=== PATIENT | female | born 1950 | race Caucasian/White ===

== ENCOUNTER 2018-04-16 12:11 | Inpatient (IN) | payer OTHER ==
[~2018-04-16] VITALS: Ht 165.1 cm; Wt 109.1 kg
[2018-04-16] MEDS ORDERED: SODIUM CHLORIDE FLUSH 10ML SYR IVF ONE (13:00)
[2018-04-16 13:34] LABS: ALBUMIN 2.8 g/dL (3.4-5.0); ANION GAP 5 mmol/L (5-15); BASOPHILS # (AUTO) 0.04 x10^3/uL (0-0.1); BASOPHILS % (AUTO) 0 % (0-1); CHLORIDE 104 mmol/L (98-107); EOSINOPHILS % (AUTO) 1 % (1-7); LYMPHOCYTES # (AUTO) 1.85 x10^3/uL (1-3.4); LYMPHOCYTES % (AUTO) 20 % (22-44); MD NO; MEAN CORPUSCULAR HEMOGLOBIN 32.3 pg (27.0-34.8); MEAN CORPUSCULAR HGB CONC 32.2 g/dL (32.4-35.8); MEAN CORPUSCULAR VOLUME 100.3 fL (80-100); MEAN PLATELET VOLUME 9.4 fL (7.4-10.4); MONOCYTES # (AUTO) 0.85 x10^3/uL (0.2-0.8); MONOCYTES % (AUTO) 9 % (2-9); NEUTROPHILS # (AUTO) 6.64 x10^3/uL (1.8-6.8); NEUTROPHILS % (AUTO) 70 % (42-75); PLATELET COUNT 161 x10^3/uL (130-400); RED BLOOD COUNT 4.67 x10^6/uL (3.82-5.3); RED CELL DISTRIBUTION WIDTH 15.8 % (9.6-15.2)
[2018-04-16 13:36] LABS: INTERNATIONAL NORMALIZED RATIO 1.16 (0.93-1.1); PROTHROMBIN TIME 11.9 Seconds (9.6-11.5)
[2018-04-16 13:40] LABS: ALANINE AMINOTRANSFERASE 12 U/L (12-78); ALKALINE PHOSPHATASE 85 U/L (45-117); BILIRUBIN,TOTAL 1.3 mg/dL (0.2-1.0); CREATININE 0.93 mg/dL (0.55-1.02); TOTAL PROTEIN 6.4 g/dL (6.4-8.2); TROPONIN I < 0.015 ng/mL (0.000-0.045)
[2018-04-16] MEDS ORDERED: FUROSEMIDE 20 MG/2 ML ONE ×2 (14:10→18:00)
[2018-04-16] MEDS ORDERED: SACU1TAB4 PO (14:25)
[2018-04-16] MEDS ORDERED: SIMV40TA3 PO (14:25)
[2018-04-16] MEDS ORDERED: FURO20TA3 PO (14:25)
[2018-04-16] MEDS ORDERED: SPIR25TA3 PO (14:25)
[2018-04-16] MEDS ORDERED: CARV-39 PO (14:25)
[2018-04-16] MEDS ORDERED: PLEASE ENTER ALLERGIES MC SCH (14:30)
[2018-04-16] MEDS ORDERED: FUROSEMIDE 20 MG/2 ML IV ONE (14:30)
[2018-04-16 15:37] LABS: TROPONIN I < 0.015 ng/mL (0.000-0.045)
[2018-04-16] MEDS ORDERED: ALBUTEROL/IPRATROPIUM 2.5MG/0.5MG, 3 ML ONE (16:17)
[2018-04-16] MEDS: ALBUTEROL/IPRATROPIUM 2.5MG/0.5MG, 3 ML NPPB SCH ×2 (16:22→20:00)
[2018-04-16] MEDS ORDERED: FUROSEMIDE 20 MG/2 ML IV SCH (17:00)
[2018-04-16] MEDS ORDERED: POTASSIUM CHLORIDE 20 MEQ TAB.ER.PRT ONE (18:00)
[2018-04-16] MEDS ORDERED: POTASSIUM CHLORIDE 10% 40 MEQ/30 ML UDC PO ONE ×3 (18:30→21:00)
[2018-04-16 21:42] LABS: TROPONIN I < 0.015 ng/mL (0.000-0.045)
[2018-04-16 22:25] VITALS: BP 105/68
[2018-04-16] MEDS: SIMVASTATIN 40 MG TABLET PO SCH (22:57)
[2018-04-16] MEDS: CARVEDILOL 25 MG TABLET PO SCH (22:57)
[2018-04-16] MEDS: SPIRONOLACTONE 25 MG TABLET PO SCH (22:57)
[2018-04-17 02:23] VITALS: BP 92/56
[2018-04-17] MEDS: ALBUTEROL/IPRATROPIUM 2.5MG/0.5MG, 3 ML NPPB SCH (07:00)
[2018-04-17 07:44] VITALS: BP 118/67
[2018-04-17] MEDS ORDERED: POTASSIUM CHLORIDE 20 MEQ TAB.ER.PRT PO SCH ×2 (08:00→09:00)
[2018-04-17] MEDS ORDERED: POTASSIUM CHLORIDE 20 MEQ PACKET PO SCH ×2 (08:37→08:38)
[2018-04-17] MEDS ORDERED: POTASSIUM CHLORIDE 20 MEQ PACKET ONE (08:37)
[2018-04-17 08:45] LABS: BASOPHILS # (AUTO) 0.06 x10^3/uL (0-0.1); BASOPHILS % (AUTO) 1 % (0-1); EOSINOPHILS # (AUTO) 0.11 x10^3/uL (0-0.4); EOSINOPHILS % (AUTO) 1 % (1-7); LYMPHOCYTES % (AUTO) 24 % (22-44); MD NO; MEAN CORPUSCULAR HEMOGLOBIN 31.7 pg (27.0-34.8); MEAN CORPUSCULAR HGB CONC 31.8 g/dL (32.4-35.8); MEAN CORPUSCULAR VOLUME 99.6 fL (80-100); MEAN PLATELET VOLUME 9.2 fL (7.4-10.4); MONOCYTES # (AUTO) 0.65 x10^3/uL (0.2-0.8); MONOCYTES % (AUTO) 9 % (2-9); NEUTROPHILS # (AUTO) 5.02 x10^3/uL (1.8-6.8); NEUTROPHILS % (AUTO) 66 % (42-75); PLATELET COUNT 154 x10^3/uL (130-400); RED BLOOD COUNT 4.48 x10^6/uL (3.82-5.3); RED CELL DISTRIBUTION WIDTH 15.4 % (9.6-15.2)
[2018-04-17] MEDS: FUROSEMIDE 40 MG/4 ML IV SCH ×2 (08:47→16:50)
[2018-04-17] MEDS: SPIRONOLACTONE 25 MG TABLET PO SCH ×2 (08:47→22:06)
[2018-04-17] MEDS: CARVEDILOL 25 MG TABLET PO SCH ×2 (08:48→22:06)
[2018-04-17 08:53] LABS: CHLORIDE 105 mmol/L (98-107)
[2018-04-17 08:59] LABS: ANION GAP 6 mmol/L (5-15); CREATININE 0.88 mg/dL (0.55-1.02)
[2018-04-17] MEDS: POTASSIUM CHLORIDE 20 MEQ PACKET PO SCH ×2 (11:37→16:50)
[2018-04-17] MEDS ORDERED: ALBUTEROL/IPRATROPIUM 2.5MG/0.5MG, 3 ML NPPB PRN (12:00)
[2018-04-17 12:54] VITALS: BP 115/83
[2018-04-17] MEDS ORDERED: FUROSEMIDE 20 MG/2 ML IV SCH (17:00)
[2018-04-17 19:32] VITALS: BP 105/70
[2018-04-17] MEDS: SIMVASTATIN 40 MG TABLET PO SCH (22:06)
[2018-04-18 02:00] VITALS: BP 97/61
[2018-04-18 05:31] LABS: BASOPHILS # (AUTO) 0.03 x10^3/uL (0-0.1); BASOPHILS % (AUTO) 0 % (0-1); EOSINOPHILS # (AUTO) 0.09 x10^3/uL (0-0.4); EOSINOPHILS % (AUTO) 1 % (1-7); LYMPHOCYTES % (AUTO) 22 % (22-44); MD NO; MEAN CORPUSCULAR HEMOGLOBIN 32.3 pg (27.0-34.8); MEAN CORPUSCULAR HGB CONC 31.7 g/dL (32.4-35.8); MEAN CORPUSCULAR VOLUME 101.7 fL (80-100); MEAN PLATELET VOLUME 9.9 fL (7.4-10.4); MONOCYTES # (AUTO) 0.89 x10^3/uL (0.2-0.8); MONOCYTES % (AUTO) 11 % (2-9); NEUTROPHILS # (AUTO) 5.27 x10^3/uL (1.8-6.8); NEUTROPHILS % (AUTO) 65 % (42-75); PLATELET COUNT 133 x10^3/uL (130-400); RED BLOOD COUNT 4.33 x10^6/uL (3.82-5.3); RED CELL DISTRIBUTION WIDTH 15.5 % (9.6-15.2)
[2018-04-18 05:37] LABS: ANION GAP 3 mmol/L (5-15); CALCIUM 9.8 mg/dL (8.5-10.1); CHLORIDE 102 mmol/L (98-107)
[2018-04-18 05:40] LABS: CREATININE 0.94 mg/dL (0.55-1.02)
[2018-04-18] MEDS ORDERED: MAGNESIUM SULFATE PMX 2GM/50ML 50 ML IV ONE (07:00)
[2018-04-18] MEDS: GUAIFENESIN ER 600 MG TABLET PO SCH ×2 (09:20→19:57)
[2018-04-18] MEDS: POTASSIUM CHLORIDE 20 MEQ PACKET PO SCH ×2 (09:20→16:19)
[2018-04-18] MEDS: SPIRONOLACTONE 25 MG TABLET PO SCH ×2 (09:20→19:57)
[2018-04-18] MEDS: CARVEDILOL 25 MG TABLET PO SCH ×2 (09:20→19:57)
[2018-04-18] MEDS ORDERED: FUROSEMIDE 20 MG/2 ML IV ONE (09:30)
[2018-04-18 09:50] VITALS: BP 92/61
[2018-04-18] MEDS: DOXYCYCLINE 100 MG in DEXTROSE 5% 250 ML IV SCH ×2 (11:30→23:43)
[2018-04-18] MEDS: CEFTRIAXONE PMX 2GM/50ML 50 ML IV SCH (13:08)
[2018-04-18 13:25] VITALS: BP 106/75
[2018-04-18] MEDS: FUROSEMIDE 40 MG/4 ML IV SCH (16:19)
[2018-04-18 19:54] VITALS: BP 107/62
[2018-04-18] MEDS: SIMVASTATIN 40 MG TABLET PO SCH (19:57)
[2018-04-19 02:00] VITALS: BP 96/64
[2018-04-19 05:13] LABS: BASOPHILS # (AUTO) 0.05 x10^3/uL (0-0.1); BASOPHILS % (AUTO) 1 % (0-1); EOSINOPHILS % (AUTO) 1 % (1-7); LYMPHOCYTES # (AUTO) 1.68 x10^3/uL (1-3.4); LYMPHOCYTES % (AUTO) 20 % (22-44); MD NO; MEAN CORPUSCULAR HEMOGLOBIN 32.3 pg (27.0-34.8); MEAN CORPUSCULAR VOLUME 101.1 fL (80-100); MEAN PLATELET VOLUME 10.1 fL (7.4-10.4); MONOCYTES # (AUTO) 0.92 x10^3/uL (0.2-0.8); MONOCYTES % (AUTO) 11 % (2-9); NEUTROPHILS % (AUTO) 68 % (42-75); PLATELET COUNT 131 x10^3/uL (130-400); RED BLOOD COUNT 4.34 x10^6/uL (3.82-5.3); RED CELL DISTRIBUTION WIDTH 15.3 % (9.6-15.2)
[2018-04-19 05:23] LABS: ANION GAP 2 mmol/L (5-15); CALCIUM 9.1 mg/dL (8.5-10.1); CHLORIDE 103 mmol/L (98-107); CREATININE 0.81 mg/dL (0.55-1.02)
[2018-04-19 07:06] VITALS: BP 102/67
[2018-04-19] MEDS: CARVEDILOL 25 MG TABLET PO SCH ×2 (07:58→21:31)
[2018-04-19] MEDS: POTASSIUM CHLORIDE 20 MEQ PACKET PO SCH ×2 (07:58→17:13)
[2018-04-19] MEDS: SPIRONOLACTONE 25 MG TABLET PO SCH ×2 (07:58→21:32)
[2018-04-19] MEDS: FUROSEMIDE 40 MG/4 ML IV SCH ×2 (07:58→17:14)
[2018-04-19] MEDS: GUAIFENESIN ER 600 MG TABLET PO SCH ×2 (07:59→21:34)
[2018-04-19] MEDS: CEFTRIAXONE PMX 2GM/50ML 50 ML IV SCH (11:00)
[2018-04-19] MEDS: DOXYCYCLINE 100 MG in DEXTROSE 5% 250 ML IV SCH ×2 (12:04→23:04)
[2018-04-19 12:40] VITALS: BP 150/80
[2018-04-19 16:40] VITALS: BP 104/69
[2018-04-19 20:02] VITALS: BP 96/62
[2018-04-19] MEDS: SIMVASTATIN 40 MG TABLET PO SCH (21:32)
[2018-04-20 01:20] VITALS: BP 104/57
[2018-04-20] MEDS: FUROSEMIDE 40 MG/4 ML IV SCH (07:30)
[2018-04-20] MEDS: POTASSIUM CHLORIDE 20 MEQ PACKET PO SCH (08:00)
[2018-04-20 08:11] VITALS: BP 116/74
[2018-04-20] MEDS: CARVEDILOL 25 MG TABLET PO SCH (08:21)
[2018-04-20] MEDS: SPIRONOLACTONE 25 MG TABLET PO SCH (08:21)
[2018-04-20] MEDS: GUAIFENESIN ER 600 MG TABLET PO SCH (08:22)
[2018-04-20] MEDS: DOXYCYCLINE 100 MG in DEXTROSE 5% 250 ML IV SCH (10:59)
[2018-04-20] MEDS: CEFTRIAXONE PMX 2GM/50ML 50 ML IV SCH (10:59)
[2018-04-20] MEDS ORDERED: LEVO750T26 PO (11:02)
[2018-04-20] MEDS ORDERED: FURO40TA6 PO (11:21)
[2018-04-20] MEDS ORDERED: POTA1POW4 PO (11:21)
[2018-04-20] MEDS ORDERED: LEVOFLOXACIN 750 MG TABLET PO SCH (11:30)
[2018-04-20 12:42] VITALS: BP 136/81
[2018-04-20 13:45] VITALS: BP 136/81
== END 2018-04-20 13:31 | disposition home or self-care (01) | DRG 291 ==
LOC: ED 14:06 → EDIP 14:07 → ED 14:31 → 5SO 20:16
PROVIDERS: ADMIT Hospitalist; ATTEND Hospitalist
DX: I11.0 Hypertensive heart disease with heart failure (principal); J96.01 Acute respiratory failure with hypoxia; E43 Unspecified severe protein-calorie malnutrition; J18.9 Pneumonia, unspecified organism; D68.59 Other primary thrombophilia; J44.0 Chronic obstructive pulmonary disease with (acute) lower respiratory infection; J44.1 Chronic obstructive pulmonary disease with (acute) exacerbation; R17 Unspecified jaundice; Z68.41 Body mass index [BMI] 40.0-44.9, adult; I50.9 Heart failure, unspecified; E87.6 Hypokalemia; F17.210 Nicotine dependence, cigarettes, uncomplicated; Z90.710 Acquired absence of both cervix and uterus; Z95.810 Presence of automatic (implantable) cardiac defibrillator
CPT/HCPCS: 36415; 71045; 80048; 80053; 83735; 83880; 84100; 84484; 85025; 85610; 87070; 87205; 93005; 93306; 94640; 96374; 96376; J0696; J1940; J7060; J7620; J3475

== ENCOUNTER 2018-05-31 13:22 | Emergency (ER) | payer OTHER ==
[~2018-05-31] VITALS: Ht 165.1 cm; Wt 105.0 kg
[~2018-05-31 13:22] MED LIST: CARV-39 PO; FURO20TA3 PO; FURO40TA6 PO; LEVO750T26 PO; POTA1POW4 PO; SACU1TAB4 PO; SIMV40TA3 PO; SPIR25TA3 PO
[2018-05-31 14:25] LABS: BASOPHILS # (AUTO) 0.05 x10^3/uL (0-0.1); BASOPHILS % (AUTO) 1 % (0-1); EOSINOPHILS # (AUTO) 0.17 x10^3/uL (0-0.4); EOSINOPHILS % (AUTO) 2 % (1-7); LYMPHOCYTES % (AUTO) 19 % (22-44); MD NO; MEAN CORPUSCULAR HEMOGLOBIN 32.1 pg (27.0-34.8); MEAN CORPUSCULAR HGB CONC 32.7 g/dL (32.4-35.8); MEAN CORPUSCULAR VOLUME 98.1 fL (80-100); MEAN PLATELET VOLUME 9.5 fL (7.4-10.4); MONOCYTES # (AUTO) 0.92 x10^3/uL (0.2-0.8); MONOCYTES % (AUTO) 9 % (2-9); NEUTROPHILS # (AUTO) 7.13 x10^3/uL (1.8-6.8); NEUTROPHILS % (AUTO) 70 % (42-75); PLATELET COUNT 209 x10^3/uL (130-400); RED BLOOD COUNT 4.99 x10^6/uL (3.82-5.3); RED CELL DISTRIBUTION WIDTH 14.5 % (9.6-15.2)
[2018-05-31 14:32] LABS: ALBUMIN 3.1 g/dL (3.4-5.0); ANION GAP 4 mmol/L (5-15); CALCIUM 10.1 mg/dL (8.5-10.1); CHLORIDE 103 mmol/L (98-107); CREATININE 1.05 mg/dL (0.55-1.02)
[2018-05-31 14:36] LABS: TROPONIN I < 0.015 ng/mL (0.000-0.045)
[2018-05-31 15:14] VITALS: BP 108/90
== END 2018-05-31 16:48 | disposition home or self-care (01) ==
LOC: ED 14:14
DX: T82.897A Other specified complication of cardiac prosthetic devices, implants and grafts, initial encounter (principal); T82.128A Displacement of other cardiac electronic device, initial encounter; I11.0 Hypertensive heart disease with heart failure; I50.9 Heart failure, unspecified; Z95.0 Presence of cardiac pacemaker; F17.200 Nicotine dependence, unspecified, uncomplicated
CPT/HCPCS: 36415; 71045; 80048; 82040; 83880; 84484; 85025; 93005; 99285

== ENCOUNTER → 2018-10-17 | Outpatient (CLI) | payer OTHER ==
[~2018-10-17] MED LIST changes: -SPIR25TA3 PO; +SPIR25TA5 PO
== END | disposition home or self-care (01) ==
LOC: CFH 13:01
PROVIDERS: ATTEND Internal Medicine Critical Care Medicine
DX: Z12.2 Encounter for screening for malignant neoplasm of respiratory organs (principal); J43.9 Emphysema, unspecified; R59.0 Localized enlarged lymph nodes; Z87.891 Personal history of nicotine dependence
CPT/HCPCS: G0297